=== PATIENT | female | born 1970 | race Caucasian/White ===

== ENCOUNTER → 2024-05-29 | Outpatient (CLI) | payer MEDICAID, SELFPAY ==
--- NOTE | 2024-05-29 14:29 | XR_ITS ---
Examination: Wrist, left 3 views Technique: Wrist AP, oblique, lateral 3 views Date and time of exam: May 29, 2024 1432 hrs. Indications: Left wrist pain several years. Findings: Significant osteopenia Mild to moderate narrowing radiocarpal intercarpal carpometacarpal joints No erosive arthritis No fractures No cortical bone destruction No opaque foreign bodies Impression: Significant osteopenia Mild to moderate narrowing radiocarpal intercarpal carpometacarpal joints No erosive arthritis
--- NOTE | 2024-05-29 14:29 | XR_ITS ---
Examination: Hand, left 3 views Technique: Hand AP, oblique, lateral 3 views Date and time of exam: May 29, 2024 1432 hrs. Indications: Left hand and wrist pain several years Findings: Significant juxta-articular bone demineralization Mild to moderate diffuse narrowing joints of the wrist and hand No erosive arthritis No cortical bone destruction No opaque foreign bodies No avascular necrosis Impression: Significant juxta-articular bone demineralization Mild/moderate diffuse narrowing joints of the wrist and hand No erosive arthritis
== END | disposition home or self-care (01) ==
PROVIDERS: PCP Physician Assistant; Referring Provider Nurse Practitioner Gerontology; Visit Provider Nurse Practitioner Gerontology
DX: M25.842 Other specified joint disorders, left hand (principal); M25.832 Other specified joint disorders, left wrist; M85.88 Other specified disorders of bone density and structure, other site
CPT/HCPCS: 73110; 73130

== ENCOUNTER → 2024-06-02 | Outpatient (CLI) | payer MEDICAID, SELFPAY ==
--- NOTE | 2024-06-02 08:30 | XR_ITS ---
Examination: Screening digital mammography, bilateral Computer aided detection 3-D breast Tomosynthesis, bilateral Date and time of exam: June 02, 2024 0819 hours Compared to mammograms dating to September 27, 2020 Indication: Screening Technique: Nonmagnified MLO, CC views of the breasts to been obtained, reconstructed from 3-D Tomosynthesis images. R2 computer aided detection program utilized for evaluation of suspicious masses and/or abnormal calcifications. 3-D Tomosynthesis images obtained. Findings: Scattered areas of fibroglandular density. Stable focal asymmetry adjacent to breast biopsy marker upper outer right breast Benign calcifications No interval suspicious masses Impression: BI-RADS category II: Benign Findings. Recommend 1 year follow-up mammogram.
== END | disposition home or self-care (01) ==
LOC: CDIM 08:13
PROVIDERS: Referring Provider Obstetrics & Gynecology; Visit Provider Obstetrics & Gynecology
DX: Z12.31 Encounter for screening mammogram for malignant neoplasm of breast (principal); R92.323 Mammographic fibroglandular density, bilateral breasts; R92.1 Mammographic calcification found on diagnostic imaging of breast
CPT/HCPCS: 77063; 77067

== ENCOUNTER → 2024-08-01 | Outpatient (CLI) | payer MEDICAID, SELFPAY ==
--- NOTE | 2024-08-01 08:54 | XR_ITS ---
Examination: PA lateral chest 2 views TECHNIQUE: Upright PA lateral chest 2 views Exam date and time: August 01, 2024 0910 hours INDICATIONS: Smoking history 25 years +PPD FINDINGS: No significant cardiac enlargement Lungs are clear. Mild hyperexpansion Moderate thoracic spondylosis IMPRESSION: No active disease No radiographic findings of tuberculosis
== END | disposition home or self-care (01) ==
PROVIDERS: PCP Physician Assistant; Referring Provider Physician Assistant; Visit Provider Physician Assistant
DX: Z01.810 Encounter for preprocedural cardiovascular examination (principal)
CPT/HCPCS: 71046

== ENCOUNTER → 2024-10-07 | Outpatient (CLI) | payer MEDICAID, SELFPAY ==
--- NOTE | 2024-10-07 15:21 | XR_ITS ---
Examination: PA lateral chest 2 views TECHNIQUE: Upright PA lateral chest 2 views Date and time: October 07, 2024 1536 hours Comparison August 01, 2024 INDICATIONS: Preop FINDINGS: Normal heart size. The lungs are clear. Moderate osteopenia IMPRESSION: No active disease.
== END | disposition home or self-care (01) ==
PROVIDERS: PCP Physician Assistant; Referring Provider Physician Assistant; Visit Provider Physician Assistant
DX: Z01.810 Encounter for preprocedural cardiovascular examination (principal)
CPT/HCPCS: 71046

== ENCOUNTER 2025-03-09 00:08 | Emergency (ER) | payer MEDICAID, SELFPAY ==
[2025-03-09] VITALS (10 sets, daily range): BP systolic 126–157; BP diastolic 61–94; PULSE 91–107; RESP 17–24; TEMP 36.7–37; O2SAT 94–100; BMI 31.1
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
--- NOTE | 2025-03-09 00:25 | EKG_ITS ---
[facility] Test Date: 2025-03-09 Pat Name: PRISCILLA HUMMEL Department: Room: - Gender: Female Pe Electrical Engineer: : 1970 Requested By: Ken Gamboa Order Number: [id number] Reading MD: Ken Gamboa Measurements Intervals Honor Rate: 100 P: 58 IA: 135 QRS: 2 QRSD: 91 T: 51 QT: 372 QTc: 480 Interpretive Statements SINUS TACHYCARDIA LEFT ATRIAL ENLARGEMENT [-0.15mV P-WAVE IN V1/V2] MINIMAL ST DEPRESSION [0.025+ mV ST DEPRESSION] Compared to ECG 03/05/2023 11:23:11 ST (T wave) deviation now present Short IA interval no longer present T-wave abnormality no longer present /store/S0/[id number].pdf
[2025-03-09] MEDS: SODIUM CHLORIDE 0.9% 1000 ML 1,000 ML 999 ML IV (00:34)
[2025-03-09] MEDS: SODIUM CHLORIDE 0.9% 1000 ML 1,000 ML 100 ML IV (00:35)
[2025-03-09 01:22] LABS: Basophils # (Auto) 0.0 Thou/mm3 (0.0-0.2); Basophils % (Auto) 0 % (0-2.5); Eosinophils # (Auto) 0.3 Thou/mm3 (0.0-0.5); Eosinophils % (Auto) 5 % (0-10); Hematocrit 41.6 % (36.0-46.0); Hemoglobin 14.1 g/dL (12.0-16.0); Immature Granulocytes Auto 0.03 Thou/mm3 (0.00-0.00); Lymphocytes # (Auto) 1.8 Thou/mm3 (1.0-4.8); Lymphocytes % (Auto) 24 % (10-50); Mean Corpuscular HGB Conc 33.9 g/dl (31.0-37.0); Mean Corpuscular Hemoglobin 33.4 pg (25.0-35.0); Mean Corpuscular Volume 99 fL (80-100); Monocytes # (Auto) 1.0 Thou/mm3 (0.0-0.8); Monocytes % (Auto) 14 % (0-12); Neutrophils # (Auto) 4.2 Thou/mm3 (1.8-7.7); Neutrophils % (Auto) 57 % (37-80); Nucleated Red Blood Cell # 0.00 Thou/mm3 (0.00-0.00); Nucleated Red Blood Cell % 0 /100 WBC (0); Platelet Count 417 Thou/mm3 (140-440); RDW Standard Deviation 47.5 fL (36.4-46.3); Red Blood Count 4.22 Miln/mm3 (4.00-5.20); White Blood Count 7.3 Thou/mm3 (3.6-11.0)
[2025-03-09 01:52] LABS: B-Type Natriuretic Peptide 1564 pg/mL (0-100)
[2025-03-09 01:53] LABS: Alanine Aminotransferase 24 U/L (10-49); Albumin, Serum 3.7 gm/dL (3.5-5.0); Albumin/Globulin Ratio 1.7 (1.2-2.2); Alkaline Phosphatase 137 U/L (46-116); Anion Gap 10 (7-16); Aspartate Amino Transferase 26 U/L (0-34); BUN/Creatinine Ratio 17 Ratio (12-20); Bilirubin,Total 0.4 mg/dL (0.3-1.2); Blood Urea Nitrogen 17 mg/dL (9-23); Calcium 8.3 mg/dL (8.3-10.6); Calcium (Corrected) 8.5 mg/dL (8.5-10.1); Carbon Dioxide 31.2 mMol/L (20.0-31.0); Chloride 101 mMol/L (98-107); Creatinine (Component) 1.0 mg/dL (0.6-1.3); Estimated Creatinine Clearance 57.2 mL/min (>60); Globulin 2.2 gm/dL (2.3-3.5); Glucose 102 mg/dL (74-106); Magnesium 1.5 mg/dL (1.6-2.6); Osmolality,Calculated 284 (275-295); Potassium 3.2 mMol/L (3.4-5.1); Sodium 142 mMol/L (136-145); Total Protein 5.9 gm/dL (5.7-8.2); Troponin I 0.036 ng/mL (0.0-0.045); eGFR > 60 See Note
[2025-03-09 02:38] LABS: Collection Type, Urine Clean Catch
[2025-03-09 03:02] LABS: Bilirubin,Urine Negative (Negative); Blood,Urine Negative (Negative); Clarity,Urine Clear (Clear/Hazy); Color,Urine Lt-Yellow (Lt Yel-Yel); Culture Indicated,Urine Not Indicated; Glucose, Urine Negative (Negative); Ketones,Urine Negative (Negative); Leukocyte Esterase,Urine Negative (Negative); Nitrite,Urine Negative (Negative); PH,Urine 7.0 (5.0-7.0); Protein,Urine Trace (Neg - Trace); RBC,Urine 1 /hpf (0-3); Specific Gravity,Urine 1.019 (1.001-1.035); Squamous Epithelial Cell,Urine 4 /hpf (0-5); Urobilinogen,Urine 2.0 mg/dL (0.0-1.0); WBC,Urine < 1 /hpf (0-5)
[2025-03-09] MEDS: ALBUTEROL RT 2.5 MG/3 ML NEBU INH (03:41)
[2025-03-09] MEDS: IPRATROPIUM RT 0.5 MG/ 2.5 ML NEBU HHN (03:41)
[2025-03-09] MEDS: ALBUTEROL/IPRATROPIUM (Duoneb) RT SOL 3 ML NEBU INH (03:41)
[2025-03-09] MEDS: FUROSEMIDE INJ 10 MG/ML 4ML VIAL 20 MG IVP (04:05)
[2025-03-09] MEDS: NITROGLYCERIN OINT 2% 1 INCH PACKET TOP (04:06)
== END 2025-03-09 05:02 | disposition home or self-care (01) ==
PROVIDERS: Emergency Provider Emergency Medicine; PCP Physician Assistant
DX: J44.1 Chronic obstructive pulmonary disease with (acute) exacerbation (principal); I11.0 Hypertensive heart disease with heart failure; I50.9 Heart failure, unspecified; E78.00 Pure hypercholesterolemia, unspecified; R00.0 Tachycardia, unspecified; F17.210 Nicotine dependence, cigarettes, uncomplicated
CPT/HCPCS: 36415; 71045; 80053; 81001; 83735; 83880; 84484; 85025; 93005; 94640; 96361; 96374; 96375; 99285; A9270; J1100; J1938; J7030; J7644